=== PATIENT | male | born 1935 | race Caucasian/White ===

== ENCOUNTER → 2018-06-15 | Day surgery (SDC) | payer OTHER ==
[2018-06-14 12:46] LABS: BASOPHILS # (AUTO) 0.1 (0.0-0.1); EOSINOPHILS # (AUTO) 0.2 (0.0-0.4); EOSINOPHILS % 4.1 % (0.0-6.0); HEMATOCRIT 37.2 % (38.2-49.6); LYMPHOCYTES # (AUTO) 1.5 (1.0-3.2); MEAN CORPUSCULAR HEMOGLOBIN 27.1 pg (28-32); MEAN CORPUSCULAR HGB CONC 32.3 g/dL (31-35); MEAN CORPUSCULAR VOLUME 84.2 fL (81-99); MONOCYTES # (AUTO) 0.5 (0.2-0.8); MONOCYTES % 10.5 % (4.4-11.3); NEUTROPHILS # (AUTO) 2.6 (2.1-6.9); PLATELET COUNT 159 x10e3/uL (140-360); RED BLOOD COUNT 4.42 x10e6/uL (4.3-5.7); RED CELL DISTRIBUTION WIDTH 14.3 % (11.7-14.4)
[2018-06-14 13:06] LABS: ANION GAP 10.8 mmol/L (8-16); CALCIUM 9.5 mg/dL (8.4-10.2); CREATININE, SERUM 1.37 mg/dL (0.72-1.25); POTASSIUM 3.8 mmol/L (3.5-5.1)
[~2018-06-15] MED LIST: AMLODIPINE BESYL5 MG PO; ARICEPT5 MG PO; BENZONATATE100 MG PO; CEFAZOLIN SOD 1 GM VIAL ONE; CLARITIN; COMBIGAN EYE DRO5 ML OU; DEXAMETHASONE SOD PHOS INJ 4 MG/ML VIAL ONE; FENOFIBRATE PO; FLOVENT DISKUS50 MCG; GLIMEPIRIDE2 MG PO; LATANOPROST2.5 ML OP; LIDOCAINE HCL 2% LOCAL INJ 5 ML SDV VIAL INJ ONE; LISINOPRIL-HCT1 EACH PO; LISINOPRIL/HCTZ PO; LISINOPRIL10 MG PO; LOVASTATIN10 MG PO; METFORMIN HCL500 MG PO; ONDANSETRON HCL INJ 2 MG/ML VIAL ONE; PRAMIPEXOLE DIHY1 MG PO; PROBIOTIC & AC1 EACH PO; PROPOFOL IV EMULSION 10 MG/ML 20 ML VIAL ONE; SERTRALINE HCL50 MG PO; SEVOFLURANE INHAL SOLN 250 ML PEN BTL ONE; TAMSULOSIN HCL0.4 MG PO; XALATAN OU; XALATAN2.5 ML; XALATAN2.5 ML OU
--- NOTE | 2018-06-15 13:00 | Operative Report ---
DATE OF PROCEDURE: June 15, 2018 SERVICE: Urology. PREOPERATIVE DIAGNOSIS: Recurrent stones on the left side, at least 3 tiny stones and one 1 cm x 0.6 cm on the left side. INDICATIONS: The patient was brought for ESWL. These are recurrent stones. Procedure was discussed with the patient and the plan of treatment explained and accepted. DESCRIPTION OF PROCEDURE AND FINDINGS: After proper level of anesthesia was achieved, the patient was placed in supine position. The stone in the lower pole was treated first, it was treated with 2500 shocks. There is some change in shape of the stone in this area, maybe composed of even more than one tiny stone. Following this, additional area was treated with 500 shocks and the stone disintegrated. There are 2 very tiny little fragments of stone. It is elected not to treat them at the present time. The patient tolerated the procedure well. There was some increase in the heart rate during the procedure and it returned to normal when we stopped. Patient was transferred in satisfactory condition to recovery room and will be followed as outpatient. Job#: [id number] LIA
--- OUTSIDE RECORDS SUMMARY | 2018-08-04 01:56 | XMS REPORT ---
[facility] Address Unknown Phone Unavailable Care Team Providers Care [employer] Coordinator Name Role Phone RANDALL WEIR Unavailable Unavailable SUMITPEL, DAVID Unavailable Unavailable Payers Payer Name Policy Type Policy Number Effective Date Expiration Date Problems This patient has no known problems. Allergies, Adverse Reactions, Alerts Allergy Name Allergy Type Status Severity Reaction(s) Onset Date Inactive Date Treating Clinician Comments No Known Allergies DA Active U 2018-06-30 00:00:00 Medications This patient has no known medications. Results Test Description Test Time Test Comments Text Results Atomic Results Result Comments ABDOMEN-1VIEW (MERRITT) 2018-07-29 11:34:00 [place] [address] Patient Name: GARY SANDOVAL MR #: [id number] : 1935 Age/Sex: 82/M Req #: [id number] Adm Physician: Ordered by: RANDALL WEIR MD Report #: [id number] Location: [facility] Room/Bed: __ Procedure: [id number] DX/ABDOMEN-1VIEW (KUB) Exam Date: 07/29/18 Exam Time: 1115 REPORT STATUS: Signed Exam: Abdominal film Clinical History: renal calculus Comparison: None. DISCUSSION: Frontal view of the abdomen shows a nonobstructive bowel gas pattern with mild amount of retained stool. No dilated, air-filled loops of bowel. 2 3-mm left renal calculi stable. Prior right renal calculi not currently seen. No acute bone abnormality. IMPRESSION: (2) 3- mm left renal calculi, stable. Signed by: Dr. Taylor Rust M.D. on 07/29/2018 11:37 AM Dictated By: TAYLOR RUST MD 113 Transcribed By: DEIDRE on 07/29/18 1137 COPY TO: RANDALL WEIR MD ABDOMEN-1VIEW (KUB) [place] [address] Patient Name: GARY SANDOVAL MR #: [id number] : 1935 Age/Sex: 81/M Req #: [id number] Adm Physician: Ordered by: DAVID WEIR MD Report #: [id number] Location: [facility] Room/Bed: Procedure: [id number] DX/ABDOMEN-1VIEW (KUB) Exam Date: 09/09/17 Exam Time: 1130 REPORT STATUS: Signed PROCEDURE: X-RAY ABDOMEN - KUB COMPARISON: Abdomen x-ray 06/23/17. INDICATIONS: FOLLOW UP KIDNEY STONE SURGERY FINDINGS: Calculi: There are 4-5 clustered calculi in the right kidney. The largest measure up to 9 mm and are likely within an infundibulum. Two calculi in an associated calyx each measure about 5 mm. Previously, only 2 calculi were identified on x-ray. A calculus over the left renal shadow measures 8 mm and is stable. No new calculi have developed. There are no calculi over the expected course of the ureters or in the pelvis. Bowel gas pattern: There is a non- obstructed bowel-gas pattern. No dilated bowel loops. No organomegaly. Degenerative changes of the spine are stable. A soft tissue calcification inferior to the left pubic symphysis measures 4 mm. CONCLUSION: Intrarenal calculi in the right kidney have increased in number. No calculus along the right ureter. Consider further evaluation with CT. Solitary calculus in the left kidney is stable. Dictated by: Skyler Elena M.D. on 09/09/2017 at 12:15 Electronically approved by: Skyler Elena M.D. on 09/09/2017 at 12:15 Dictated By: SKYLER ELENA MD 1215 COPY TO: DAVID WEIR MD CHEST 2 VIEWS [place] [address] Patient Name: GARY SANDOVAL MR #: [id number] : 1935 Age/Sex: 81/M Req # : [id number] Adm Physician: Ordered by: RANDALL WEIR MD Report #: [id number] Location: OR Room/Bed: Procedure: [id number] DX/CHEST 2 VIEWS Exam Date: 08/30/17 Exam Time: 1650 REPORT STATUS: Signed PROCEDURE: Frontal and lateral views of the chest. COMPARISON: Chest 2 views 07/09/2015. INDICATIONS: PRE OP FINDINGS: Lines/tubes: None. Lungs: The lungs are well inflated and clear. There is no evidence of pneumonia or pulmonary edema. Pleura: There is no pleural effusion or pneumothorax. Heart and mediastinum: The heart and the mediastinum are normal. Atherosclerotic calcifications. Bones: Degenerative changes of the thoracic spine. IMPRESSION: No acute radiographic abnormality. Dictated by: Ramesh Go M.D. on 08/30/2017 at 17:19 Electronically approved by: Ramesh Go M.D. on 08/30/2017 at 17:19 Dictated By: RAMESH GO MD 18 Transcribed By: ELADIO on 08/30/171718 COPY TO: RANDALL WEIR MD ABDOMEN-1VIEW (KUB) [place] [address] Patient Name: GARY SANDOVAL MR #: [id number] : 1935 Age/Sex: 81/M Req #: [id number] Adm Physician: Ordered by: RANDALL WEIR MD Report #: [id number] Location: RAD Room/Bed: Procedure: [id number] DX/ABDOMEN-1VIEW (KUB) Exam Date: 06/23/17 Exam Time: 1250 REPORT STATUS: Signed PROCEDURE: X-RAY ABDOMEN - KUB COMPARISON: Abdomen 2 views 08/08/2015. INDICATIONS : CALCULUS OF KIDNEY FINDINGS: There is a non-obstructed bowel-gas pattern. 3.5 mm and 4.2 mm calcifications project over the right renal shadow. 3.7 mm and 3.4 mm calcifications project over the left renal shadow. There are no calcifications projected over the expected course of the ureters or bladder. Degenerative changes of the lumbar spine. There are no acute osseous abnormalities. The lung bases are clear. CONCLUSION: Bilateral nephrolithiasis. Dictated by: Ramesh Go M.D. on 06/23/2017 at 13:46 Electronically approved by: Ramesh Go M.D. on 06/23/2017 at 13:46 Dictated By: RAMESH GO MD 1346 Transcribed By: ELADIO on 06/23/17 1346 COPY TO: RANDALL WEIR MD
== END | disposition home or self-care (01) ==
LOC: OR 07:03
PROVIDERS: ATTEND Urology
DX: N20.0 Calculus of kidney (principal); E11.22 Type 2 diabetes mellitus with diabetic chronic kidney disease; I12.9 Hypertensive chronic kidney disease with stage 1 through stage 4 chronic kidney disease, or unspecified chronic kidney disease; N18.9 Chronic kidney disease, unspecified; G47.33 Obstructive sleep apnea (adult) (pediatric); Z01.810 Encounter for preprocedural cardiovascular examination; Z01.812 Encounter for preprocedural laboratory examination; Z79.84 Long term (current) use of oral hypoglycemic drugs
CPT/HCPCS: 36415 ×2; 50590; 80048; 82948; 85025; 93005; J0690; J1100; J2001; J2405

== ENCOUNTER → 2018-07-29 | Outpatient (CLI) | payer OTHER ==
[~2018-07-29] MED LIST changes: -CEFAZOLIN SOD 1 GM VIAL ONE; -DEXAMETHASONE SOD PHOS INJ 4 MG/ML VIAL ONE; -LIDOCAINE HCL 2% LOCAL INJ 5 ML SDV VIAL INJ ONE; -ONDANSETRON HCL INJ 2 MG/ML VIAL ONE; -PROPOFOL IV EMULSION 10 MG/ML 20 ML VIAL ONE; -SEVOFLURANE INHAL SOLN 250 ML PEN BTL ONE
--- NOTE | 2018-07-29 11:40 | Diagnostic Imaging Report ---
Exam: Abdominal film Clinical History: renal calculus Comparison: None. DISCUSSION: Frontal view of the abdomen shows a nonobstructive bowel gas pattern with mild amount of retained stool. No dilated, air-filled loops of bowel. 2 3-mm left renal calculi stable. Prior right renal calculi not currently seen. No acute bone abnormality. IMPRESSION: (2) 3-mm left renal calculi, stable. Signed by: Dr. Felice Lema M.D. on 07/29/2018 11:37 AM
== END ==
LOC: RAD 07-19 11:51
PROVIDERS: ATTEND Urology
DX: N20.0 Calculus of kidney (principal)
CPT/HCPCS: 74018